=== PATIENT | female | born 1970 | race Caucasian/White ===

== ENCOUNTER → 2021-12-13 13:53 | Outpatient (REF) | payer OTHER, MEDICAID, SELFPAY ==
--- NOTE | 2021-12-13 13:58 | CA_ITS ---
Transthoracic Echocardiogram Patient (Last, First, Middle): Nicolette Anna, Gender: Female Date of : 1970 Age: 51 Procedure Date: 12/13/2021 Procedure Type: Transthoracic Echocardiogram Location: OP Height: 154.94 cm Weight: 84.37 kg BSA: 1.83 m2 Heart Rate: bpm BP: 137 / 83 mmHg Sample Prep Technician: Referring MD: Renny Garcia MD Symptoms: ABNORMAL EKG R 94.31 Study Quality: Good ECG Rhythm: Sinus Conclusions: - The left ventricular systolic function is normal. The calculated ejection fraction is 56% by biplane method. - Mild to moderate hypertrophy of the basal septum. - No obvious valvular pathology seen on this study. Findings Left Ventricle Normal left ventricular cavity size. The left ventricular systolic function is normal. The calculated ejection fraction is 56% by biplane method. There is no evidence of regional wall motion abnormalities. E/E prime ratio is between 8 and 15 consistent with indeterminate filling pressures. Evidence suggests grade I (mild) diastolic dysfunction. Mild to moderate hypertrophy of the basal septum. Right Ventricle Normal right ventricular cavity size and systolic function. Atria Both atria are normal in size. Aortic Valve There is a normal trileaflet aortic valve. There is no aortic valve stenosis. There is no aortic valve regurgitation. Mitral Valve The mitral valve appears normal. There is trace mitral valve regurgitation. There is no mitral valve stenosis. Pulmonic Valve The pulmonic valve is likely normal. Tricuspid Valve There is trace tricuspid valve regurgitation. There is no evidence of pulmonary hypertension. Great Vessels The aortic annulus, sinuses of valsalva, and asc aorta are normal in size. Venous The inferior vena cava is normal in size and collapses greater than 50% with inspiration. Pericardium/Pleural There is a trivial pericardial effusion. Prior Study Comparison No prior study available for comparison. Recommendations, Care & Conclusions No obvious valvular pathology seen on this study. Measurements 2D Linear Measurements IVSd: 1.34 0.6-0.9/0.6-1.0 cm LVIDd: 3.19 3.9-5.3/4.2-5.9 cm LVIDd Index: 1.74 2.4-3.2/2.2-3.1 cm/m2 LVIDs: 2.07 2.0-3.6 cm LVPWd: 1.22 0.7-1.1 cm Ao Root: 3.00 2.1-3.5 cm LA Diam: 2.80 2.7-3.8/3.0-4.0 cm LAIDs Index: 1.53 1.5-2.3 cm/m2 LV Mass: 163.95 67-162/88-224 g LV Mass Index: 89.59 43-95/49-115 g/m2 LVOT Diam: 2.00 3.0+(-)1.3 cm 2D Systolic Function EF 4C: 57.30 >55% EF 2C: 59.20 >55% EF BiP: 55.70 >55% Mitral Valve MV Pk E: 0.69 MV PK A: 1.05 MV Decel Time: 202.00 E/A: 0.70 E'Lateral: 7.29 E'Medial: 4.90 E/E' Med: 14.20 E/E' Lat: 9.50 PHT: 59.00 MVA PHT: 3.73 Decel Haskell: 3.43 Aortic Valve AoV Pk Crow: 1.34 AoV Mn Crow: 0.90 AoV VTI: 0.26 AoV Pk Grad: 7.00 Aov Mn Grad: 4.00 EDUAR Cont.VTI: 2.52 LVOT LVOT Pk Crow: 0.88 LVOT Mn Crow: 0.62 LVOT VTI: 0.21 LVOT Pk Grad: 3.00 LVOT Mn Grad: 2.00 LVOT Diam: 2.00 LVOT Area: 3.14 Diastolic Function MV Pk E: 0.69 MV Pk A: 1.05 E/A: 0.70 E'Medial: 4.90 E/E' Med: 14.20 E' Laterial: 7.29 E/E' Lat: 9.50 Right Ventricle TAPSE (mm): 30.00 TVS' Crow: 12.00 Tricuspid Valve TR Pk Crow: 1.57 TR Pk Grad: 10.00 RA Press: 3.00 RVSP: 13.00 Great Vessels Aorta Ao Root-2D: 3.00 2.0-3.7 cm Ao Asc: 3.10 2.1-3.4 cm Pulmonary Valve PV Pk Crow: 0.89 Peak PV Grad: 3.00 Updated in Other Vendor System with Status of Final Cirilo Lemos MD electronically signed on 12/14/2021 11:07:45 AM with status of Final
== END ==
LOC: HO.CARD 13:53
PROVIDERS: PCP Internal Medicine; Visit Provider Family Medicine
DX: R94.31 Abnormal electrocardiogram [ECG] [EKG] (principal)
CPT/HCPCS: 93306